=== PATIENT | female | born 1985 | race American Indian/Alaskan Native ===

== ENCOUNTER 2017-09-07 23:07 | Emergency (ER) | payer MEDICARE ==
[2017-09-07 23:11] VITALS: BP 118/72
--- NOTE | 2017-09-08 02:28 | Emergency Department Report ---
HPI - General Chief Complaint: Sore Throat Time Seen by Provider: 09/08/17 02:27 - HPI HPI: Patient reports sore throat times one day. She says she has chills but did not take her temperature. Pain is 8 out of 10 [address] floor worse with swallowing. No [id number] medication taken. Denies any shortness of breath or chest pain. Denies any nausea or vomiting. Denies any cough and or nasal congestion. ED Past Medical Hx - Past Medical History Previous Medical History?: No - Surgical History Past Surgical History?: Yes Additional Surgical History: Gastric Bypass - Family History Family history: no significant - Social History Smoking Status: Never Smoker Substance Use Type: Marijuana - Medications Home Medications: Home Medications Medication Instructions Recorded Confirmed Last Taken Type Acetaminophen with Codeine 15 ml PO Q8H PRN 3 Days #135 09/08/17 Unknown Rx [Acetaminop-Codeine 120-12 mg/5] solution Penicillin V Potassium 10 ml PO Q8H 10 Days #300 09/08/17 Unknown Rx soln.recon ED Review of Systems ROS: Stated complaint: THROAT PAIN Other details as noted in HPI Comment: All other systems reviewed and negative Constitutional: chills Eyes: denies: vision change ENT: throat pain. denies: ear pain, congestion Respiratory: no symptoms reported Cardiovascular: denies: chest pain, palpitations, dyspnea on exertion, edema, syncope, paroxysmal nocturnal dyspnea Gastrointestinal: denies: abdominal pain, nausea, vomiting, diarrhea, constipation, hematemesis, melena, hematochezia Musculoskeletal: denies: back pain, joint swelling, arthralgia, myalgia Skin: denies: rash Neurological: denies: headache, weakness, numbness, paresthesias, confusion, abnormal gait, vertigo Physical Exam - Physical Exam Vital Signs: Vital Signs 09/07/17 23:08 Temperature 98.4 F Pulse Rate 72 Respiratory 18 Rate Blood Pressure 118/72 O2 Sat by Pulse 100 Oximetry General: This is a 29-year-old female well-nourished well-developed in no acute distress. Physical Exam: Head: Normocephalic atraumatic Ears:BIateral TM pearly tay .Teto EAC with normal exam. No mastoid bone tenderness. Mouth: Moist, positive pharyngeal erythema, swelling and exudate. UVULA midline and oral airways patent. No peritonsillar abscess. Oral airway is patent . Tongue is normal. No drooling noted Neck: Nontender to palpate, supple, normal range of motion. Positive anterior cervical adenopath. No c-spine tenderness. Nose: Bilateral nasal mucosa normal .maxillary and frontal sinuses non-tender to palpate. Eyes: Sclerae and conjunctiva without injection. Bilateral pupils equal and reactive to light. Bilateral lids are normal. Normal accommodation.BEOMI Lungs: Clear to auscultate bilaterally, no rhonchi wheezes or rales. Normal work of breathing and no chest wall tenderness CV: S1, S2. Regular rate and rhythm negative murmur. Capillary refill is less than 3 seconds Skin: Clean dry and intact, no rashes or lesions Psych: Normal mood and behavior ED Course Vital Signs 09/07/17 23:08 Temperature 98.4 F Pulse Rate 72 Respiratory 18 Rate Blood Pressure 118/72 O2 Sat by Pulse 100 Oximetry - Reevaluation(s) Reevaluation #1: 09/08/17 04:12 Patient given Rocephin 1 g IM and emergency room for strep and she'll be prescribed penicillin VK 3 times a day. She was also given Toradol 60 mg IM and Decadron 10 mg IM. Viscous lidocaine given for sore throat. Patient and says she could not swallow pills so therefore had to give her injection. ED Medical Decision Making - Lab Data Rapid strep test positive - Medical Decision Making ED course: Patient reports sore throat times one day with chills. Rapid strep test is positive for strep. Patient unable to take pills because she said it hurts when she swallows. She says that she can take Motrin by mouth because it makes her stomach hurt. I discussed the diagnosis and treatment plan the patient. Patient was given Decadron 10 mg IM, Rocephin 1 g IM, Toradol 60 mg IM and viscous lidocaine by mouth for sore throat. Patient discharged home in stable condition with her family member with prescription for penicillin V elixir and I told her that she can take [id number] Tylenol with codeine elixir for pain. Critical care attestation.: If time is entered above; I have spent that time in minutes in the direct care of this critically ill patient, excluding procedure time. ED Disposition Clinical Impression: Strep pharyngitis, Chills, Anterior cervical adenopathy Disposition: TO HOME OR SELFCARE Is pt being admited?: No Does the pt Need Aspirin: No Condition: Stable Instructions: Strep Throat (ED) Additional Instructions: Please increase her fluid intake take antibiotic as prescribed Your strep test is positive for strep and you will need to take antibiotic as prescribed. Gargle with warm salt water 3-4 times a day and this will help to relieve his sore throat F/U with primary care physician as instructed You were prescribed Tylenol with Codeine liquid for sore throat, please do not drive or operate heavy machinery while taking this medication as it causes drowsiness Prescriptions: Acetaminophen with Codeine [Acetaminop-Codeine 120-12 mg/5] 15 ml PO Q8H PRN 3 Days #135 solution PRN Reason: Sore Throat Penicillin V Potassium 10 ml PO Q8H 10 Days #300 soln.recon Referrals: DUNIA CARLSON MD [Primary Care Provider] - 09/11/17 Forms: Accompanied Note, Work/School Release Form(ED)
[2017-09-08] MEDS ORDERED: MOTRIN PO ONE (03:37)
[2017-09-08] MEDS ORDERED: DELTASONE PO ONE (03:37)
[2017-09-08] MEDS ORDERED: VEETIDS PO ONE (03:38)
[2017-09-08] MEDS ORDERED: ROCEPHIN IM STA (04:03)
[2017-09-08] MEDS ORDERED: DECADRON IM ONE (04:03)
[2017-09-08] MEDS ORDERED: XYLOCAINE 1% MPF 5 mL INFILTRATI ONE (04:03)
[2017-09-08] MEDS ORDERED: TORADOL IM ONE (04:04)
[2017-09-08] MEDS ORDERED: LIDOCAINE VISCOUS 2% PO ONE (04:05)
== END 2017-09-08 04:56 | disposition home or self-care (01) ==
LOC: ED 23:07
DX: J02.0 Streptococcal pharyngitis (principal); R59.9 Enlarged lymph nodes, unspecified; F12.10 Cannabis abuse, uncomplicated
CPT/HCPCS: 87430; 96372; 99282; J0696; J1100; J1885; J7512

== ENCOUNTER 2017-09-23 17:22 | Emergency (ER) | payer MEDICARE ==
[2017-09-23 19:31] LABS: Bilirubin,Urine NEG (Negative); Blood,Urine NEG (Negative); Ketones,Urine NEG (Negative); Leukocyte Esterase,Urine NEG (Negative); Mucus,Urine FEW /HPF; Nitrite,Urine NEG (Negative); Protein,Urine <15 mg/dL mg/dL (Negative)
--- NOTE | 2017-09-23 20:17 | Emergency Department Report ---
ED Female HPI - General Chief complaint: Urogenital-Female Stated complaint: YEAST INFECTION Time Seen by Provider: 09/23/17 19:18 Source: patient, family Mode of arrival: Ambulatory Limitations: No Limitations - History of Present Illness Initial comments: Patient reports that she is having vaginal irritation and slight discharge that she has a yeast infection from taking penicillin for strep. She says she took the last dose of penicillin one week ago. Patient complains that she still has a sore throat. Pain is 6 out of 10 and sore worse with swallowing and denies any fever or chills. Denies any nausea or vomiting. Denies any cough, runny nose or nasal congestion. Denies any shortness of breath. Patient is not worried about STD because she said she has sex with female and she's had 1 partner for several years. Her partner is at her bedside. Denies any abdominal or back pain. Denies any urinary burning frequency or urgency. Denies any fever or chills. MD Complaint: vaginal discharge, other (patient reports that she is having sore throat and that she was treated for strep on 09/08/2017 and completed her penicillin dose.) Onset/Timin -: days(s) Location: other (sore throat) Severity: mild (sore throat) Severity scale (0 -10): 3 Quality: other (sore) Consistency: intermittent Improves with: none Worsens with: none Are you Now?: No Associated Symptoms: vaginal discharge, other (throat, sore). denies: vaginal bleeding, abdominal pain, nausea/vomiting, fever/chills, headaches, loss of appetite, dysuria, hematuria, rash, seizure, shortness of breath, syncope, weakness - Related Data Sexually active: Yes (with female) Previous Rx's Medication Instructions Recorded Last Taken Type Acetaminophen with Codeine 15 ml PO Q8H PRN 3 Days #135 09/08/17 Unknown Rx [Acetaminop-Codeine 120-12 mg/5] solution Penicillin V Potassium 10 ml PO Q8H 10 Days #300 09/08/17 Unknown Rx soln.recon Fluconazole [Diflucan TAB] 200 mg PO QDAY PRN 1 Days #1 tablet 09/23/17 Unknown Rx metroNIDAZOLE [Flagyl] 500 mg PO Q12HR 7 Days #14 tablet 09/23/17 Unknown Rx Allergies Allergy/AdvReac Type Severity Reaction Status Date / Time amoxicillin Allergy Rash Verified 09/23/17 17:51 ED Review of Systems ROS: Stated complaint: YEAST INFECTION Other details as noted in HPI Comment: All other systems reviewed and negative Constitutional: no symptoms reported Eyes: denies: eye pain, eye discharge ENT: throat pain. denies: ear pain, dental pain, congestion Respiratory: no symptoms reported Cardiovascular: denies: chest pain, palpitations, dyspnea on exertion, edema, syncope, paroxysmal nocturnal dyspnea Gastrointestinal: denies: abdominal pain, nausea, vomiting, diarrhea, constipation, hematemesis, melena, hematochezia Genitourinary: discharge. denies: urgency, dysuria, frequency, hematuria, abnormal menses, dyspareunia Musculoskeletal: denies: back pain, joint swelling, arthralgia, myalgia Skin: denies: rash Neurological: denies: headache, weakness, numbness, paresthesias, confusion, abnormal gait, vertigo ED Past Medical Hx - Past Medical History Previous Medical History?: No - Surgical History Past Surgical History?: Yes Additional Surgical History: Gastric Bypass - Family History Family history: hypertension - Social History Smoking Status: Never Smoker Substance Use Type: None - Medications Home Medications: Home Medications Medication Instructions Recorded Confirmed Last Taken Type Acetaminophen with Codeine 15 ml PO Q8H PRN 3 Days #135 09/08/17 Unknown Rx [Acetaminop-Codeine 120-12 mg/5] solution Penicillin V Potassium 10 ml PO Q8H 10 Days #300 09/08/17 Unknown Rx soln.recon Fluconazole [Diflucan TAB] 200 mg PO QDAY PRN 1 Days #1 tablet 09/23/17 Unknown Rx metroNIDAZOLE [Flagyl] 500 mg PO Q12HR 7 Days #14 tablet 09/23/17 Unknown Rx ED Physical Exam - General Limitations: No Limitations General appearance: alert, in no apparent distress - Head Head exam: Present: atraumatic, normocephalic, normal inspection - Eye Eye exam: Present: normal appearance, PERRL, EOMI Pupils: Present: normal accommodation - ENT ENT exam: Present: normal exam, normal orophraynx, mucous membranes moist. Absent: TM's normal bilaterally, normal external ear exam - Expanded ENT Exam Expanded Ear exam: Present: normal external inspection Mouth exam: Present: normal external inspection. Absent: drooling, trismus, muffled voice, tongue normal, tongue elevation, laceration Teeth exam: Present: normal inspection Throat exam: Positive: normal inspection. Negative: tonsillar erythema, tonsillomegaly, tonsillar exudate, R peritonsillar mass, L peritonsillar mass - Neck Neck exam: Present: normal inspection, full ROM, other (no cspine tenderness). Absent: tenderness, meningismus, lymphadenopathy, thyromegaly - Respiratory Respiratory exam: Present: normal lung sounds bilaterally. Absent: respiratory distress, chest wall tenderness, accessory muscle use - Cardiovascular Cardiovascular Exam: Present: regular rate, normal rhythm, normal heart sounds. Absent: systolic murmur, diastolic murmur - GI/Abdominal GI/Abdominal exam: Present: soft, normal bowel sounds. Absent: distended, tenderness, guarding, rebound, rigid, organomegaly, mass, bruit, pulsatile mass , hernia - Extremities Exam Extremities exam: Present: normal inspection, full ROM, normal capillary refill , other (timing, cyanosis or edema. +2 pulses to all extremities. No neurovascular compromise.). Absent: tenderness, pedal edema, joint swelling, calf tenderness - Back Exam Back exam: Present: normal inspection, full ROM, rash noted, other (patient ambulates without any difficulties.). Absent: tenderness, CVA tenderness (R), CVA tenderness (L), muscle spasm, paraspinal tenderness, vertebral tenderness - Neurological Exam Neurological exam: Present: alert, oriented X3, normal gait, reflexes normal. Absent: motor sensory deficit - Psychiatric Psychiatric exam: Present: normal affect, normal mood - Skin Skin exam: Present: warm, dry, intact, normal color. Absent: rash ED Course Vital Signs 09/23/17 09/23/17 17:45 19:25 Temperature 97.7 F Pulse Rate 57 L Respiratory 18 20 Rate Blood Pressure 101/60 O2 Sat by Pulse 99 Oximetry - Reevaluation(s) Reevaluation #1: 09/23/17 21:28 Patient urinalysis negative for infection test is negative. Wet prep positive for less than 20% clue cells. For Trichomonas and yeast. Patient did not want to be tested for gonorrhea and chlamydia because she says she is not concerned about that. ED Medical Decision Making - Lab Data Strep test negative Strep culture pending Wet prep positive BV, negative trichomoniasis and negative yeast. negative - Medical Decision Making ED course: Sent here complaining of vaginal irritation and slight vaginal discharge that she thinks it with yeast infection from her taken penicillin for strep throat. Patient was treated for strep throat on 09/11/2017 with penicillin and she says she completed her last dose of penicillin one week ago. She reports that she is having sore throat at 3 out of 10. Denies any fever or chills. Physical findings for normal oral exam, pelvic exam with no CMT, no adnexal. Skin vaginal discharge without any odor with mild fishy odor. Vaginal swab negative for yeast infection, negative for Trichomonas positive for bacterial vaginosis. Urinalysis negative for bacterial infection and negative for . Strep test is negative. I discussed all results with patient's. I told her that she does not have strep, and that the tests for yeast was negative but I told her that she has bacterial vaginosis and discussed treatment plan with her and I told her I will put her on Diflucan on 1. I discussed her that urine and urinalysis was negative for any bacterial or negative . Patient did not want gonorrhea and chlamydia test because she is not concerned for that. Surgical with her partner in stable condition with prescription for Flagyl and Diflucan . I discussed with her that she needs to follow up with her primary care physician in 3-5 days. Critical care attestation.: If time is entered above; I have spent that time in minutes in the direct care of this critically ill patient, excluding procedure time. ED Disposition Clinical Impression: Vaginal discharge, Bacterial vaginosis Pharyngitis Qualifiers: Pharyngitis/tonsillitis etiology: unspecified etiology Qualified Code(s): J02.9 - Acute pharyngitis, unspecified Disposition: - TO HOME OR SELFCARE Is pt being admited?: No Does the pt Need Aspirin: No Condition: Stable Instructions: Bacterial Vaginosis (ED), Pharyngitis (ED) Additional Instructions: Follow-up with your primary care physician in 3-5 days Take Flagyl for bacterial vaginosis but avoid drinking alcohol while taking this medication as this medication can have negative reaction with ALL. increase her fluid intake Take probiotics to restore normal vaginal ashly Strep test was negative Prescriptions: Fluconazole [Diflucan TAB] 200 mg PO QDAY PRN 1 Days #1 tablet PRN Reason: YEAST metroNIDAZOLE [Flagyl] 500 mg PO Q12HR 7 Days #14 tablet Referrals: PRIMARY CARE, [Primary Care Provider] - 3-5 Days [facility] [Outside] - 3-5 Days
[2017-09-23 21:49] VITALS: BP 104/68
== END 2017-09-23 21:54 | disposition home or self-care (01) ==
LOC: ED 17:22
DX: N76.0 Acute vaginitis (principal); B96.89 Other specified bacterial agents as the cause of diseases classified elsewhere; J02.9 Acute pharyngitis, unspecified; Z88.1 Allergy status to other antibiotic agents; Z98.84 Bariatric surgery status
CPT/HCPCS: 81001; 81025; 87116; 87210; 87430; 99284

== ENCOUNTER 2017-12-07 22:15 | Emergency (ER) | payer MEDICARE ==
[2017-12-07 23:19] LABS: Basophils % (Auto) 0.7 % (0.0-1.8); Eosinophils % (Auto) 4.6 % (0.0-4.3); Hematocrit 31.1 % (30.3-42.9); Hemoglobin 9.8 gm/dl (10.1-14.3); Lymphocytes % (Auto) 46.7 % (13.4-35.0); Mean Corpuscular HGB Conc 31 % (30-34); Mean Corpuscular Hemoglobin 23 pg (28-32); Mean Corpuscular Volume 74 fl (79-97); Monocytes % (Auto) 6.8 % (0.0-7.3); Platelet Count 374 K/mm3 (140-440); Red Blood Count 4.19 M/mm3 (3.65-5.03); Red Cell Distribution Width 17.8 % (13.2-15.2)
[2017-12-07 23:20] LABS: Eosinophils # (Auto) 0.2 K/mm3 (0.0-0.4); Lymphocytes # (Auto) 2.3 K/mm3 (1.2-5.4); Monocytes # (Auto) 0.3 K/mm3 (0.0-0.8)
[2017-12-07 23:30] LABS: Alanine Aminotransferase 12 units/L (7-56); BUN/Creatinine Ratio 15; Blood Urea Nitrogen 9 mg/dL (7-17); Calcium 8.8 mg/dL (8.4-10.2); Hemolysis Index 25
[2017-12-08] MEDS ORDERED: MORPHINE IV ONE (00:20)
[2017-12-08] MEDS ORDERED: NACL 0.9% 1000 ML 1,000 ML IV ONE (00:20)
[2017-12-08] MEDS ORDERED: ZOFRAN IV ONE (00:20)
--- NOTE | 2017-12-08 00:24 | Emergency Department Report ---
ED Abdominal Pain HPI - General Chief Complaint: Abdominal Pain Stated Complaint: BACK PAIN AND STOMACH Time Seen by Provider: 12/08/17 00:15 Source: patient Mode of arrival: Ambulatory Limitations: No Limitations - History of Present Illness Initial Comments: Patient is 32 years old female history of gastric bypass surgery 4 years ago, presented to the ER with abdominal pain, nausea and vomiting for the last 3 days. Patient denied any fever or diarrhea. No chest pain or shortness of breath. MD Complaint: abdominal pain Location: epigastric Migration to: no migration Severity: moderate Severity scale (0 -10): 6 Quality: sharp Improves With: nothing Associated Symptoms: nausea, vomiting - Related Data Previous Rx's Medication Instructions Recorded Last Taken Type Acetaminophen with Codeine 15 ml PO Q8H PRN 3 Days #135 09/08/17 Unknown Rx [Acetaminop-Codeine 120-12 mg/5] solution Penicillin V Potassium 10 ml PO Q8H 10 Days #300 09/08/17 Unknown Rx soln.recon Fluconazole [Diflucan TAB] 200 mg PO QDAY PRN 1 Days #1 tablet 09/23/17 Unknown Rx metroNIDAZOLE [Flagyl] 500 mg PO Q12HR 7 Days #14 tablet 09/23/17 Unknown Rx Allergies Allergy/AdvReac Type Severity Reaction Status Date / Time amoxicillin Allergy Rash Verified 12/07/17 22:26 ED Review of Systems ROS: Stated complaint: BACK PAIN AND STOMACH Other details as noted in HPI Comment: All other systems reviewed and negative Constitutional: denies: chills, fever Respiratory: denies: cough, orthopnea, shortness of breath Cardiovascular: denies: chest pain, palpitations, dyspnea on exertion Gastrointestinal: abdominal pain, nausea, vomiting. denies: diarrhea, constipation, hematemesis, melena, hematochezia Genitourinary: denies: urgency, frequency, hematuria Neurological: denies: headache, weakness, numbness ED Past Medical Hx - Past Medical History Hx Asthma: Yes - Surgical History Additional Surgical History: Gastric Bypass - Social History Smoking Status: Current Every Day Smoker Substance Use Type: Alcohol - Medications Home Medications: Home Medications Medication Instructions Recorded Confirmed Last Taken Type Acetaminophen with Codeine 15 ml PO Q8H PRN 3 Days #135 09/08/17 Unknown Rx [Acetaminop-Codeine 120-12 mg/5] solution Penicillin V Potassium 10 ml PO Q8H 10 Days #300 09/08/17 Unknown Rx soln.recon Fluconazole [Diflucan TAB] 200 mg PO QDAY PRN 1 Days #1 tablet 09/23/17 Unknown Rx metroNIDAZOLE [Flagyl] 500 mg PO Q12HR 7 Days #14 tablet 09/23/17 Unknown Rx ED Physical Exam - General Limitations: No Limitations General appearance: alert, in no apparent distress - Head Head exam: Present: atraumatic, normocephalic - ENT ENT exam: Present: mucous membranes dry - Neck Neck exam: Present: normal inspection, full ROM. Absent: tenderness, meningismus, lymphadenopathy, thyromegaly - Respiratory Respiratory exam: Present: normal lung sounds bilaterally. Absent: respiratory distress, wheezes, rales, rhonchi, stridor, chest wall tenderness, accessory muscle use, decreased breath sounds, prolonged expiratory - Cardiovascular Cardiovascular Exam: Present: regular rate, normal rhythm, normal heart sounds - GI/Abdominal GI/Abdominal exam: Present: soft, tenderness (epigastric), normal bowel sounds. Absent: guarding, rebound, rigid, organomegaly, mass, bruit, pulsatile mass, hernia - Extremities Exam Extremities exam: Present: normal inspection, full ROM, normal capillary refill - Back Exam Back exam: Present: normal inspection, full ROM. Absent: tenderness, CVA tenderness (R), CVA tenderness (L) - Neurological Exam Neurological exam: Present: alert, oriented X3, CN II-XII intact, normal gait - Skin Skin exam: Present: warm, dry, intact ED Course Vital Signs 12/07/17 12/08/17 12/08/17 22:26 00:25 00:30 Temperature 98.2 F Pulse Rate 65 57 L 55 L Respiratory 18 11 L 7 L Rate Blood Pressure 105/64 98/61 O2 Sat by Pulse 98 99 100 Oximetry 12/08/17 12/08/17 12/08/17 00:33 00:46 01:00 Temperature Pulse Rate 53 L 52 L Respiratory 18 8 L 12 Rate Blood Pressure 106/53 106/68 O2 Sat by Pulse 99 100 Oximetry 12/08/17 12/08/17 12/08/17 01:15 01:30 02:20 Temperature Pulse Rate 52 L 52 L 91 H Respiratory 16 10 L 10 L Rate Blood Pressure 111/66 111/66 96/54 O2 Sat by Pulse 100 100 Oximetry 12/08/17 12/08/17 02:30 02:41 Temperature 98 F Pulse Rate 63 Respiratory 15 Rate Blood Pressure 118/71 O2 Sat by Pulse 98 Oximetry - Reevaluation(s) Reevaluation #1: 12/08/17 03:06 Patient stated that she is feeling better, abdominal pain resolved. No nausea no vomiting. ED Medical Decision Making - Lab Data Result diagrams: 12/07/17 23:03 12/07/17 23:03 Critical care attestation.: If time is entered above; I have spent that time in minutes in the direct care of this critically ill patient, excluding procedure time. ED Disposition Clinical Impression: Abdominal pain, Ovarian cyst Disposition: DC-01 TO HOME OR SELFCARE Is pt being admited?: No Condition: Stable Instructions: Abdominal Pain (ED), Ovarian Cyst (ED)
[2017-12-08] MEDS ORDERED: NACL ONE (01:34)
--- NOTE | 2017-12-08 02:13 | Cat Scan Report ---
FINAL REPORT EXAM: CT ABDOMEN PELVIS W CON HISTORY: abdominal pain, history of gastric bypass surgery COMPARISON: None available. TECHNIQUE: Contiguous axial images were obtained. Additional sagittal and coronal reformatted images were obtained. Administration of IV contrast given per institution protocol. Images submitted for interpretation. 100 cc Omnipaque [id number]. FINDINGS: Mild subsegmental atelectasis at the lung bases. Gallbladder distended. No calcified gallstones or biliary dilatation. Liver, spleen, pancreas are grossly unremarkable. No adrenal mass. No solid renal lesion. No hydronephrosis. Aorta and IVC normal in caliber. Urinary bladder, uterus, right ovary grossly unremarkable. Simple appearing left ovarian cystic structure likely physiologic given the patient's age measuring 2.3 x 2.1 centimeters. Trace fluid in the pelvis within physiologic limits. Prior gastric bypass. Mild wall thickening in borderline hyperemia the excluded portion of the stomach which may be accentuated by decompressed state. No adjacent fat stranding. No free air. Large and small bowel loops normal in caliber. Moderate stool within the majority the colon. Appendix is not visualized. However, there is no pericecal stranding or fluid to suggest acute inflammation. Mild nonspecific subcutaneous edema along the body wall. Mild pannus formation. Mild degenerative changes of the lumbar spine. [id number] degenerative changes of bilateral hips. IMPRESSION: Left ovarian cystic structure measuring 2.3 x 2.1 centimeters. This is likely physiologic given the patient's age. Trace free fluid in the pelvis within physiologic limits. Prior gastric bypass. Mild wall thickening hyperemia the excluded portion of the stomach. This may relate to its decompressed state. Mild gastritis is not excluded. Otherwise, large and small bowel loops normal in caliber. Moderate stool in the majority the colon. Appendix is not visualized. However, there is no pericecal stranding or fluid to suggest acute inflammation. No other acute findings.
[2017-12-08 03:10] VITALS: BP 96/54
== END 2017-12-08 03:12 | disposition home or self-care (01) ==
LOC: ED 22:15
DX: N83.209 Unspecified ovarian cyst, unspecified side (principal); F17.200 Nicotine dependence, unspecified, uncomplicated; J45.909 Unspecified asthma, uncomplicated; Z98.84 Bariatric surgery status; Z88.1 Allergy status to other antibiotic agents
CPT/HCPCS: 36415; 74177; 80053; 83690; 84703; 85025; 96361; 96374; 96375; 99284; J2270; J2405; J7030; Q9967

== ENCOUNTER 2018-03-09 07:48 | Emergency (ER) | payer MEDICARE ==
[2018-03-09 09:16] LABS: Bilirubin,Urine NEG (Negative); Blood,Urine NEG (Negative); Color,Urine Yellow (Yellow); Mucus,Urine FEW /HPF; Protein,Urine <15 mg/dL mg/dL (Negative)
--- NOTE | 2018-03-09 09:21 | Emergency Department Report ---
ED General Adult HPI - General Chief complaint: Pain General Stated complaint: RIGHT SIDE BODY PAIN Time Seen by Provider: 03/09/18 08:49 Source: patient Mode of arrival: Ambulatory Limitations: No Limitations - History of Present Illness Initial comments: This is a 33-year-old -[place] female presents with right shoulder pain and low back pain that is radiating down the right lower extremity the past 2 months. Patient reports she is taking Tylenol extra strength with no improvement of symptoms. 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 She is able to hold items without dropping. She decided to come in for evaluation. She was tested for diabetes prior to gastric bypass surgery several years ago but not sure what the results were. She is concerned it could potentially be related to diabetes. Denies frequency, numbness or tingling, -: month(s) (2 months) Location: back (lower back sciatica to right lower extremity), upper extremity ( right shoulder) Radiation: extremity (right lower extremity) Severity scale (0 -10): 8 Quality: aching, sharp Consistency: intermittent Improves with: none Worsens with: movement Associated Symptoms: denies other symptoms Treatments Prior to Arrival: NSAID - Related Data Previous Rx's Medication Instructions Recorded Last Taken Type Acetaminophen with Codeine 15 ml PO Q8H PRN 3 Days #135 09/08/17 Unknown Rx [Acetaminop-Codeine 120-12 mg/5] solution Penicillin V Potassium 10 ml PO Q8H 10 Days #300 09/08/17 Unknown Rx soln.recon Fluconazole [Diflucan TAB] 200 mg PO QDAY PRN 1 Days #1 tablet 09/23/17 Unknown Rx metroNIDAZOLE [Flagyl] 500 mg PO Q12HR 7 Days #14 tablet 09/23/17 Unknown Rx Esomeprazole Magnesium [NexIUM] 40 mg PO QDAY #30 capsule. 12/08/17 Unknown Rx Ondansetron [Zofran Odt] 4 mg PO Q8HR PRN #14 tab.rapdis 12/08/17 Unknown Rx traMADol [Ultram] 50 mg PO Q6HR PRN #14 tablet 12/08/17 Unknown Rx Cyclobenzaprine HCl [Flexeril 5 MG 5 mg PO TID #20 tab 03/09/18 Unknown Rx TAB] Ibuprofen [Motrin 800 MG tab] 800 mg PO Q8HR PRN #20 tablet 03/09/18 Unknown Rx Allergies Allergy/AdvReac Type Severity Reaction Status Date / Time amoxicillin Allergy Rash Verified 12/07/17 22:26 iodine Allergy Swelling Verified 03/09/18 07:59 shellfish derived Allergy Swelling Verified 03/09/18 07:59 shrimp Allergy Swelling Verified 03/09/18 07:59 ED Review of Systems ROS: Stated complaint: RIGHT SIDE BODY PAIN Other details as noted in HPI Constitutional: denies: chills, fever Respiratory: denies: cough, shortness of breath, wheezing Cardiovascular: denies: chest pain, palpitations, edema, syncope Gastrointestinal: denies: abdominal pain, nausea, vomiting, diarrhea, constipation Musculoskeletal: back pain (lower back radiating to right lower extremity), arthralgia (right shoulder). denies: joint swelling Skin: denies: rash, lesions Neurological: denies: headache, weakness, paresthesias Psychiatric: denies: anxiety, depression ED Past Medical Hx - Past Medical History Previous Medical History?: Yes Hx Asthma: Yes - Surgical History Past Surgical History?: Yes Additional Surgical History: Gastric Bypass - Social History Smoking Status: Current Some Day Smoker Substance Use Type: Alcohol, Marijuana, Non Opiate Pain - Medications Home Medications: Home Medications Medication Instructions Recorded Confirmed Last Taken Type Acetaminophen with Codeine 15 ml PO Q8H PRN 3 Days #135 09/08/17 Unknown Rx [Acetaminop-Codeine 120-12 mg/5] solution Penicillin V Potassium 10 ml PO Q8H 10 Days #300 09/08/17 Unknown Rx soln.recon Fluconazole [Diflucan TAB] 200 mg PO QDAY PRN 1 Days #1 tablet 09/23/17 Unknown Rx metroNIDAZOLE [Flagyl] 500 mg PO Q12HR 7 Days #14 tablet 09/23/17 Unknown Rx Esomeprazole Magnesium [NexIUM] 40 mg PO QDAY #30 capsule. 12/08/17 Unknown Rx Ondansetron [Zofran Odt] 4 mg PO Q8HR PRN #14 tab.rapdis 12/08/17 Unknown Rx traMADol [Ultram] 50 mg PO Q6HR PRN #14 tablet 12/08/17 Unknown Rx Cyclobenzaprine HCl [Flexeril 5 MG 5 mg PO TID #20 tab 03/09/18 Unknown Rx TAB] Ibuprofen [Motrin 800 MG tab] 800 mg PO Q8HR PRN #20 tablet 03/09/18 Unknown Rx ED Physical Exam - General Limitations: No Limitations General appearance: alert, in no apparent distress - Neck Neck exam: Present: tenderness (right sided trapezius tenderness on deep palpation), full ROM. Absent: lymphadenopathy - Respiratory Respiratory exam: Present: normal lung sounds bilaterally. Absent: respiratory distress, wheezes, rales, rhonchi, stridor, accessory muscle use - Cardiovascular Cardiovascular Exam: Present: regular rate, normal rhythm, normal heart sounds. Absent: systolic murmur, diastolic murmur, rubs, gallop - GI/Abdominal GI/Abdominal exam: Present: soft, normal bowel sounds. Absent: distended, tenderness, guarding, rebound, rigid, organomegaly, mass - Extremities Exam Extremities exam: Present: normal inspection, full ROM, normal capillary refill. Absent: pedal edema, joint swelling, calf tenderness - Expanded Upper Extremity Exam Right Shoulder Exam: Present: full ROM, tenderness over AC joint. Absent: tenderness , swelling, abrasion, laceration, ecchymosis, crepidus Upper Arm exam: Present: normal inspection, full ROM Elbow exam: Present: normal inspection, full ROM Forearm Wrist exam: Present: normal inspection, full ROM Hand Wrist exam: Present: normal inspection, full ROM Neuro motor exam: Present: wrist extension intact, thumb opposition intact, thumb adduction intact, fingers 2-5 abduction intact Neurosensory exam: Present: radial nerve intact, median nerve intact Vascular: Present: radial pulse (+2) - Back Exam Back exam: Present: normal inspection, paraspinal tenderness (on deep palpation on the right side of sacroiliac joint). Absent: rash noted - Neurological Exam Neurological exam: Present: alert, oriented X3, normal gait - Psychiatric Psychiatric exam: Present: normal affect, normal mood - Skin Skin exam: Present: warm, dry, intact, normal color, rash, abrasion (1 cm lateral distal forearm, tenderness, no swelling) ED Course Vital Signs 03/09/18 03/09/18 07:53 09:22 Temperature 98.6 F 98.6 F Pulse Rate 75 65 Respiratory 16 15 Rate Blood Pressure 100/65 Blood Pressure 91/57 [Left] O2 Sat by Pulse 99 100 Oximetry ED Medical Decision Making - Medical Decision Making This is a 33-year-old -[place] female presents with right neck and low back pain radiating to her right lower extremity for 2 months. Patient was examined by me. Physical findings susceptible of muscle strain of right trapezius muscles and low back. Xray of C-spine and L-spine obtained and shows degenerative changes according to radiologist. Patient informed of results. Start ibuprofen and cyclobenzaprine for pain. Plan discussed with patient to discharge home and treat outpatient. She agrees with ER plan. Patient discharged home in stable condition. Follow up with PCP and dentist in 2-3 days. Critical care attestation.: If time is entered above; I have spent that time in minutes in the direct care of this critically ill patient, excluding procedure time. ED Disposition Clinical Impression: Strain of cervical portion of right trapezius muscle Low back pain with right-sided sciatica Qualifiers: Chronicity: acute Back pain laterality: right Qualified Code(s): M54.41 - Lumbago with sciatica, right side Disposition: TO HOME OR SELFCARE Is pt being admited?: No Does the pt Need Aspirin: No Condition: Stable Instructions: Lumbar Radiculopathy (ED), Muscle Strain (ED) Additional Instructions: Rest Use ice or heat on affected area for 20 minutes and off for 2 hours. Take pain medication as needed for pain. Don't drive or operate heavy machinery while taking muscle relaxers because they may cause drowsiness. Follow up with Primary Care Provider in 2-3 days. Prescriptions: Cyclobenzaprine HCl [Flexeril 5 MG TAB] 5 mg PO TID #20 tab Ibuprofen [Motrin 800 MG tab] 800 mg PO Q8HR PRN #20 tablet PRN Reason: pain Referrals: DUNIA CARLSON MD [Primary Care Provider] - 3-5 Days STACIA BANERJEE DO [Referring] - 3-5 Days Forms: Work/School Release Form(ED) Time of Disposition: 11:42 Print Language: LATVIAN
[2018-03-09 09:38] LABS: HCG Qualitative,Urine Negative (Negative)
--- NOTE | 2018-03-09 11:20 | XRay Report ---
CERVICAL SPINE RADIOGRAPHS INDICATION: Neck pain. COMPARISON: None similar. FINDINGS: AP, open-mouth, lateral and swimmer's views of the cervical spine attempted, though technically limited/suboptimal. Dens much obscured due to overlying teeth. Grossly symmetric lateral masses, allowing for the positioning. Few radiopaque dental fillings. Clear lung apices. Intact craniocervical articulation on the lateral view with normal predental space, prevertebral soft tissues and the airway. Normal vertebral body stature, alignment and disc heights, to the extent assessed. CONCLUSION: Limited, though grossly unremarkable cervical spine radiographs, as described. Please correlate. Thank you for the opportunity to participate in this patient's care.
--- NOTE | 2018-03-09 11:20 | XRay Report ---
LUMBAR SPINE RADIOGRAPHS INDICATION: Low back pain with sciatica. COMPARISON: None similar. FINDINGS: AP and lateral lumbar spine radiographs demonstrate normal vertebral body stature and alignment. Mild degenerative spurring noted at T11-T12 as also along L4 superior endplate. L5-S1 disc narrowing also not excluded. Grossly normal remainder disc heights. Intact SI joints. Nonobstructive bowel gas pattern with couple of left hemiabdomen surgical clips and faint bowel anastomotic staple line noted. CONCLUSION: No acute radiographic abnormality with mild spinal degenerative changes noted in this patient with left hemiabdomen postsurgical changes, as described. Please correlate. Thank you for the opportunity to participate in this patient's care.
[2018-03-09 12:14] VITALS: BP 98/47
== END 2018-03-09 12:15 | disposition home or self-care (01) ==
LOC: ED 07:48
DX: S46.811A Strain of other muscles, fascia and tendons at shoulder and upper arm level, right arm, initial encounter (principal); M54.41 Lumbago with sciatica, right side; F17.200 Nicotine dependence, unspecified, uncomplicated; J45.909 Unspecified asthma, uncomplicated; F12.10 Cannabis abuse, uncomplicated; Z88.1 Allergy status to other antibiotic agents; Z91.013 Allergy to seafood; X58.XXXA Exposure to other specified factors, initial encounter; Y93.89 Activity, other specified; Y92.89 Other specified places as the place of occurrence of the external cause; Y99.8 Other external cause status
CPT/HCPCS: 72040; 72100; 81001; 81025; 99283

== ENCOUNTER 2019-06-26 11:08 | Emergency (ER) | payer MEDICARE ==
--- NOTE | 2019-06-26 11:14 | Emergency Department Report ---
Blank Doc - Documentation Documentation: 34-year-old female that presents with lower abdominal pain with n/v. This initial assessment/diagnostic orders/clinical plan/treatment(s) is/are subject to change based on patient's health status, clinical progression and re- assessment by fellow clinical providers in the ED. Further treatment and workup at subsequent clinical providers discretion. Patient/guardians urged not to elope from the ED as their condition may be serious if not clinically assessed and managed. Initial orders include: 1- Patient sent to [facility] for further evaluation and treatment 2- labs 3- UA
[2019-06-26 11:15] VITALS: BP 110/64
[2019-06-26 11:49] LABS: Basophils % (Auto) 0.7 % (0.0-1.8); Eosinophils # (Auto) 0.3 K/mm3 (0.0-0.4); Eosinophils % (Auto) 6.2 % (0.0-4.3); Hematocrit 39.6 % (30.3-42.9); Hemoglobin 13.1 gm/dl (10.1-14.3); Lymphocytes # (Auto) 1.6 K/mm3 (1.2-5.4); Lymphocytes % (Auto) 31.8 % (13.4-35.0); Mean Corpuscular HGB Conc 33 % (30-34); Mean Corpuscular Volume 85 fl (79-97); Monocytes # (Auto) 0.3 K/mm3 (0.0-0.8); Monocytes % (Auto) 5.1 % (0.0-7.3); Red Blood Count 4.64 M/mm3 (3.65-5.03); Red Cell Distribution Width 14.8 % (13.2-15.2)
[2019-06-26 12:10] LABS: Albumin 3.8 g/dL (3.9-5); BUN/Creatinine Ratio 18; Blood Urea Nitrogen 11 mg/dL (7-17); Calcium 8.9 mg/dL (8.4-10.2); Hemolysis Index 205
[2019-06-26 12:13] LABS: Alanine Aminotransferase 25 units/L (7-56)
[2019-06-26 12:42] LABS: Platelet Count 226 K/mm3 (140-440)
--- NOTE | 2019-06-26 13:12 | Emergency Department Report ---
ED Abdominal Pain HPI - General Chief Complaint: Abdominal Pain Stated Complaint: ABD PAIN Time Seen by Provider: 06/26/19 11:13 Source: patient Mode of arrival: Ambulatory Limitations: No Limitations - History of Present Illness Initial Comments: 34-year-old -[place] female comes in complaining of lower abdominal pain 2 days. Patient reports she has a history gastric bypass surgery 5 years ago. Patient reports that the pain is constant and sharp nothing makes it better. She is sexually active with females only 0 denies any vaginal bleeding or vaginal discharge. Patient does report a past medical history of abdominal obstruction, anemia, acid reflux. Patient does admit to getting B12 injections and iron infusions. Patient has a primary care provider Dr. Anabelle Copeland. Complaint: abdominal pain Location: suprapubic Radiation: none Migration to: no migration Severity scale (0 -10): 8 Quality: sharp Consistency: constant Improves With: nothing Worsens With: nothing Associated Symptoms: denies other symptoms Treatments Prior to Arrival: prescription analgesics - Related Data LMP Date: 06/20/19 Previous Rx's Medication Instructions Recorded Last Taken Type Acetaminophen with Codeine 15 ml PO Q8H PRN 3 Days #135 09/08/17 Unknown Rx [Acetaminop-Codeine 120-12 mg/5] solution Penicillin V Potassium 10 ml PO Q8H 10 Days #300 09/08/17 Unknown Rx soln.recon Fluconazole [Diflucan TAB] 200 mg PO QDAY PRN 1 Days #1 tablet 09/23/17 Unknown Rx metroNIDAZOLE [Flagyl] 500 mg PO Q12HR 7 Days #14 tablet 09/23/17 Unknown Rx Esomeprazole Magnesium [NexIUM] 40 mg PO QDAY #30 capsule. 12/08/17 Unknown Rx Ondansetron [Zofran Odt] 4 mg PO Q8HR PRN #14 tab.rapdis 12/08/17 Unknown Rx traMADol [Ultram] 50 mg PO Q6HR PRN #14 tablet 12/08/17 Unknown Rx Cyclobenzaprine HCl [Flexeril 5 MG 5 mg PO TID #20 tab 03/09/18 Unknown Rx TAB] traMADol [Ultram 50 MG tab] 50 mg PO Q6HR PRN #20 tablet 03/09/18 Unknown Rx Allergies Allergy/AdvReac Type Severity Reaction Status Date / Time amoxicillin Allergy Rash Verified 12/07/17 22:26 iodine Allergy Swelling Verified 03/09/18 07:59 shellfish derived Allergy Swelling Verified 03/09/18 07:59 shrimp Allergy Swelling Verified 03/09/18 07:59 ED Review of Systems ROS: Stated complaint: ABD PAIN Other details as noted in HPI Comment: All other systems reviewed and negative ED Past Medical Hx - Past Medical History Previous Medical History?: Yes Hx Asthma: Yes - Surgical History Past Surgical History?: Yes Additional Surgical History: Gastric Bypass - Social History Smoking Status: Never Smoker Substance Use Type: Marijuana - Medications Home Medications: Home Medications Medication Instructions Recorded Confirmed Last Taken Type Acetaminophen with Codeine 15 ml PO Q8H PRN 3 Days #135 09/08/17 Unknown Rx [Acetaminop-Codeine 120-12 mg/5] solution Penicillin V Potassium 10 ml PO Q8H 10 Days #300 09/08/17 Unknown Rx soln.recon Fluconazole [Diflucan TAB] 200 mg PO QDAY PRN 1 Days #1 tablet 09/23/17 Unknown Rx metroNIDAZOLE [Flagyl] 500 mg PO Q12HR 7 Days #14 tablet 09/23/17 Unknown Rx Esomeprazole Magnesium [NexIUM] 40 mg PO QDAY #30 capsule. 12/08/17 Unknown Rx Ondansetron [Zofran Odt] 4 mg PO Q8HR PRN #14 tab.rapdis 12/08/17 Unknown Rx traMADol [Ultram] 50 mg PO Q6HR PRN #14 tablet 12/08/17 Unknown Rx Cyclobenzaprine HCl [Flexeril 5 MG 5 mg PO TID #20 tab 03/09/18 Unknown Rx TAB] traMADol [Ultram 50 MG tab] 50 mg PO Q6HR PRN #20 tablet 03/09/18 Unknown Rx ED Physical Exam - General Limitations: No Limitations General appearance: alert, in no apparent distress - Head Head exam: Present: atraumatic, normocephalic - Eye Eye exam: Present: normal appearance - ENT ENT exam: Present: mucous membranes moist - Neck Neck exam: Present: normal inspection - Respiratory Respiratory exam: Present: normal lung sounds bilaterally. Absent: respiratory distress - Cardiovascular Cardiovascular Exam: Present: regular rate, normal rhythm. Absent: systolic murmur, diastolic murmur, rubs, gallop - GI/Abdominal GI/Abdominal exam: Present: soft, tenderness (suprapubic). Absent: distended, guarding, rebound - Extremities Exam Extremities exam: Present: normal inspection, full ROM - Back Exam Back exam: Present: normal inspection, full ROM - Neurological Exam Neurological exam: Present: alert, oriented X3 - Psychiatric Psychiatric exam: Present: normal affect, normal mood - Skin Skin exam: Present: warm, dry, intact, normal color. Absent: rash ED Course Vital Signs 06/26/19 11:13 Temperature 98.4 F Pulse Rate 64 Respiratory 19 Rate Blood Pressure 110/64 [Left] O2 Sat by Pulse 99 Oximetry ED Medical Decision Making - Lab Data Result diagrams: 06/26/19 11:20 06/26/19 11:20 - Radiology Data Radiology results: report reviewed Patient: PAPI MENEZES MR#: [id number] : 1985 Acct:[id number] Age/Sex: 34 / F ADM Date: 06/26/19 Loc: ED Attending Dr: Ordering Physician: TALYA AGUERO Date of Service: 06/26/19 Procedure(s): CT abdomen pelvis wo con Accession Number(s): [id number] cc: TALYA AGUERO CT ABDOMEN AND PELVIS WITHOUT CONTRAST INDICATION / CLINICAL INFORMATION: lower abdominal pain tenderness. TECHNIQUE: Axial CT images were obtained through the abdomen and pelvis without IV contrast. All CT scans at this location are performed using CT dose reduction for ALARA by means of automated exposure control. COMPARISON: CT dated 12/08/17 FINDINGS: LOWER CHEST: No significant abnormality. LIVER: No significant abnormality. GALLBLADDER: No significant abnormality. BILE DUCTS: No significant abnormality. PANCREAS: No significant abnormality. SPLEEN: No significant abnormality. ADRENALS: No significant abnormality. RIGHT KIDNEY and URETER: No significant abnormality. LEFT KIDNEY and URETER: No significant abnormality. STOMACH and SMALL BOWEL: Previous gastric bypass is unchanged. No small bowel dilation. COLON: No significant abnormality. APPENDIX: No significant abnormality. PERITONEUM: Trace free fluid in the pelvis which is likely physiologic in this young female patient. No free air. No fluid collection. LYMPH NODES: No significant adenopathy. AORTA and ARTERIES: No significant abnormality. IVC and VEINS: No significant abnormality. URINARY BLADDER: No significant abnormality. REPRODUCTIVE ORGANS: No significant abnormality. ADDITIONAL FINDINGS: None. SKELETAL SYSTEM: No significant abnormality. IMPRESSION: 1. No inflammatory process or bowel obstruction. 2. No acute findings. Signer Name: Diane Avilez MD Signed: 06/26/2019 4:49 PM Workstation Name: [id number] Transcribed By: DT Dictated By: Sravan Avilez MD Electronically Authenticated By: Sravan Avilez MD Signed Date/Time: 06/26/191648 DD/ 45 TD/TT: - Medical Decision Making 34-year-old -[place] female comes in complaining of lower abdominal pain 2 days. Patient reports she has a history gastric bypass surgery 5 years ago. Patient reports that the pain is constant and sharp nothing makes it better. She is sexually active with females only 0 denies any vaginal bleeding or vaginal discharge. Patient does report a past medical history of abdominal obstruction, anemia, acid reflux. Patient does admit to getting B12 injections and iron infusions. Patient has a primary care provider Dr. Anabelle Copeland. Critical care attestation.: If time is entered above; I have spent that time in minutes in the direct care of this critically ill patient, excluding procedure time. ED Disposition Clinical Impression: Abdominal pain Disposition: DC-01 TO HOME OR SELFCARE Is pt being admited?: No Does the pt Need Aspirin: No Condition: Stable Instructions: Abdominal Pain (ED) Additional Instructions: CAT scan is negative for any acute findings. Lab work is negative for any acute findings. I recommend taking either Tylenol or ibuprofen as needed for pain and to follow-up with the primary care provider. Forms: Work/School Release Form(ED)
[2019-06-26 13:37] LABS: Bilirubin,Urine NEG (Negative); Blood,Urine NEG (Negative); Color,Urine Yellow (Yellow); Mucus,Urine FEW /HPF; Protein,Urine <15 mg/dL mg/dL (Negative); WBC,Urine < 1.0 /HPF (0.0-6.0)
--- NOTE | 2019-06-26 16:53 | Cat Scan Report ---
CT ABDOMEN AND PELVIS WITHOUT CONTRAST INDICATION / CLINICAL INFORMATION: lower abdominal pain tenderness. TECHNIQUE: Axial CT images were obtained through the abdomen and pelvis without IV contrast. All CT scans at [facility] location are performed using CT dose reduction for ALARA by means of automated exposure control. COMPARISON: CT dated 12/08/17 FINDINGS: LOWER CHEST: No significant abnormality. LIVER: No significant abnormality. GALLBLADDER: No significant abnormality. BILE DUCTS: No significant abnormality. PANCREAS: No significant abnormality. SPLEEN: No significant abnormality. ADRENALS: No significant abnormality. RIGHT KIDNEY and URETER: No significant abnormality. LEFT KIDNEY and URETER: No significant abnormality. STOMACH and SMALL BOWEL: Previous gastric bypass is unchanged. No small bowel dilation. COLON: No significant abnormality. APPENDIX: No significant abnormality. PERITONEUM: Trace free fluid in the pelvis which is likely physiologic in this young female patient. No free air. No fluid collection. LYMPH NODES: No significant adenopathy. AORTA and ARTERIES: No significant abnormality. IVC and VEINS: No significant abnormality. URINARY BLADDER: No significant abnormality. REPRODUCTIVE ORGANS: No significant abnormality. ADDITIONAL FINDINGS: None. SKELETAL SYSTEM: No significant abnormality. IMPRESSION: 1. No inflammatory process or bowel obstruction. 2. No acute findings. Signer Name: Diane Avilez MD Signed: 06/26/2019 4:49 PM Workstation Name: [id number]
[2019-06-26] MEDS ORDERED: TYLENOL PO ONE (18:03)
== END 2019-06-26 18:22 | disposition home or self-care (01) ==
LOC: ED 11:08
DX: R10.30 Lower abdominal pain, unspecified (principal); J45.909 Unspecified asthma, uncomplicated; Z98.890 Other specified postprocedural states; F12.90 Cannabis use, unspecified, uncomplicated; Z79.899 Other long term (current) drug therapy; Z88.8 Allergy status to other drugs, medicaments and biological substances; Z88.1 Allergy status to other antibiotic agents; Z91.013 Allergy to seafood
CPT/HCPCS: 36415; 74176; 80053; 81001; 83690; 84703; 85025; 99284